=== PATIENT | female | born 1955 | race African-American/Black ===

== ENCOUNTER 2017-07-01 11:31 | Emergency (ER) | payer OTHER, MEDICAID ==
[2017-07-01 11:40] VITALS: BMI 41.5
--- NOTE | 2017-07-01 11:45 | DR.GENAD ---
HPI - PCP Primary Care Physician: nfd - Complaint/Symptoms Chief Complaint Doctors Comments: Patient states that she has had epigastric pain for two months. She denies a history of cardiac disease. Her complatin is about someone looking in her window. Chief Complaint:: " I have not been able to sleep we have called the air conditioning coil assembler because someone is looking into my house and im having some anxiety" - Source History Provided: Patient - Mode of Arrival Mode of Arrival: Ambulatory - Timing Onset of Chief Complaint: 06/27/17 PMH - PMH Past Medical History: Yes Past Medical History: Anxiety, Diabetes, Hypertension Past Surgical History: Yes - Family History History of Family Medical Conditions: Yes Family Medical History: Diabetes Mellitus, Hypertension - Social History Does patient currently use any type of tobacco product: No Have you used tobacco products in the last 12 months: No Type of Tobacco Use: None Does any household member use tobacco: No Alcohol Use: None Do you use any recreational Drugs:: No Lives With: Family Lives Where: Home - infectious screening In the last 2 months have you had wt loss of >10#?: NO Have you had fever, night sweats or hemotysis?: No Have you traveled outside the country in the last 6 months?: No Isolation: Standard ROS - Review of Systems Constitutional: negative: Diaphoresis Eyes: No Symptoms Reported ENTM: No Symptoms Reported Respiratoy: No Symptoms Reported Cardiovascular: No Symptoms Reported Gastrointestinal/Abdominal: No Symptoms Reported Genitourinary: No Symptoms Reported Neurological: No Symptoms Reported Musculoskeletal: No Symptoms Reported Integumentary: No Symptoms Reported Hematologic/Lymphatic: No Symptoms Reported Endocrine: No Symptoms Reported Psychiatric: No Symptoms Reported All Other Systems: Reviewed and Negative PE - Vital Signs Vitals: Temperature 97.8 F Pulse Rate [Right Brachial] 95 Pulse Rate [Right Dorsalis 95 Pedis] Pulse Rate 101 Respiratory Rate 20 Blood Pressure [Right Arm] 173/77 Blood Pressure 198/91 O2 Sat by Pulse Oximetry 99 - General Limitations: No Limitations General Appearance: Alert, In No Apparent Distress - Head Head Exam: Normal Inspection, Atraumatic - Eyes Eye exam: Normal Appearance, PERRL, EOMI - ENT ENT Exam: Normal Exam External Ear Exam: Normal External Inspection TM/Canal Exam: Bilateral Normal Nose Exam: Normal Nose Exam Mouth Exam: Normal Inspection Throat Exam: Normal Inspection - Neck Neck Exam: Normal Inspection - Chest Chest Inspection: Normal Inspection - Respiratory Respiratory Exam: Normal Lung Sounds Bilat Respiratory Exam: Bilateral Clear to Auscultation - Cardiovascular Cardiovascular Exam: Regular Rate - Abdominal Exam Abdominal Exam: Normal Inspection, Normal Bowel Sounds Abdominal Tenderness: negative: RUQ, RLQ, LUQ, LLQ, Epigastrium, Suprapubic, Diffuse, Mild, Moderate, Severe, Other - Extremities Extremities Exam: Normal Inspection - Back Back Exam: Normal Inspection - Neurologic Neurological Exam: Alert, Oriented X3, CN II-XII Intact - Psychiatric Psychiatric Exam: Normal Affect - Skin Skin Exam: Warm Course - Education/Counseling Educated On: Treatment, Diagnosis, Needs for Follow Up ROR - Labs Reviewed Laboratory Results Reviewed?: Yes (hypokalemia) Result Diagrams: 07/01/17 12:10 07/01/17 12:10 Laboratory: WBC 7.8 X10^3/uL (3.6-10.0) 07/01/17 12:10 RBC 4.98 X10^6/uL (3.5-5.4) 07/01/17 12:10 Hgb 12.9 g/dL (12.0-16.0) 07/01/17 12:10 Hct 38.6 % (36.0-47.0) 07/01/17 12:10 MCV 77.6 fL (80.0-100.0) L 07/01/17 12:10 MCH 26.0 pg (27.0-34.0) L 07/01/17 12:10 MCHC 33.5 g/dL (33.0-35.0) 07/01/17 12:10 RDW 14.9 % (11.6-16.5) 07/01/17 12:10 Plt Count 238 X10^3/uL (150.0-450.0) 07/01/17 12:10 MPV 8.4 fL (7.4-11.0) 07/01/17 12:10 Neut % (Auto) 63.3 % (42.0-75.0) 07/01/17 12:10 Lymph % (Auto) 28.9 % (21.0-51.0) 07/01/17 12:10 [place] % (Auto) 6.0 % (0.0-13.0) 07/01/17 12:10 Eos % (Auto) 1.5 % (0.9-2.9) 07/01/17 12:10 Baso % (Auto) 0.3 % (0.2-1.0) 07/01/17 12:10 Neut # (Auto) 4.9 x10^3/uL (2.2-4.8) H 07/01/17 12:10 Lymph # (Auto) 2.3 X10^3/uL (1.3-2.9) 07/01/17 12:10 [place] # (Auto) 0.5 x10^3/uL (0.3-0.8) 07/01/17 12:10 Eos # (Auto) 0.1 x10^3/uL (0.0-0.2) 07/01/17 12:10 Baso # (Auto) 0.0 X10^3/uL (0.0-0.1) 07/01/17 12:10 Absolute Nucleated RBC 0.0 /100WBC 07/01/17 12:10 Sodium 143 mmol/L (136-145) 07/01/17 12:10 Corrected Sodium 145 mmol/L (136-145) 07/01/17 12:10 Potassium 2.9 mmol/L (3.5-5.1) L* 07/01/17 12:10 Chloride 105 mmol/L (98-107) 07/01/17 12:10 Carbon Dioxide 28.7 mmol/L (21-32) 07/01/17 12:10 BUN 17 mg/dL (7-18) 07/01/17 12:10 Creatinine 1.06 mg/dL (0.55-1.02) H 07/01/17 12:10 Est GFR (MDRD) Af Amer > 60 (>60) 07/01/17 12:10 Est GFR (MDRD) Non-Af 55 (>60) L 07/01/17 12:10 Glucose 166 mg/dL (65-99) H 07/01/17 12:10 Calcium 8.6 mg/dL (8.5-10.1) 07/01/17 12:10 Corrected Calcium TNP 07/01/17 12:10 Total Bilirubin 0.60 mg/dL (0.2-1.0) 07/01/17 12:10 AST 22 Units/L (15-37) 07/01/17 12:10 ALT 22 Units/L (12-78) 07/01/17 12:10 Alkaline Phosphatase 120 Units/L (46-116) H 07/01/17 12:10 Creatine Kinase 361 Units/L (26-192) H 07/01/17 12:10 CK-MB (CK-2) 3.0 ng/mL (0-4.0) 07/01/17 12:10 CK/CKMB % Calc 0.8 % (<4) 07/01/17 12:10 Troponin I 0.03 ng/mL (0-1.5) 07/01/17 12:10 C-Reactive Protein 4.40 mg/L (0-3.0) H 07/01/17 12:10 Total Protein 7.3 g/dL (6.4-8.2) 07/01/17 12:10 Albumin 3.4 g/dL (3.4-5.0) 07/01/17 12:10 Globulin 3.9 g/dL (2.5-4.5) 07/01/17 12:10 Albumin/Globulin Ratio 0.9 Ratio (1.1-2.1) L 07/01/17 12:10 Specimen Type Random urine 07/01/17 12:16 Urine Color Yellow (YELLOW) 07/01/17 12:16 Urine Appearance Clear (CLEAR) 07/01/17 12:16 Urine pH 7.0 (5.0 - 8.0) 07/01/17 12:16 Ur Specific [place] 1.010 (1.000-1.030) 07/01/17 12:16 Urine Protein 3+ (NEGATIVE) 07/01/17 12:16 Urine Glucose (UA) Negative (NEGATIVE) 07/01/17 12:16 Urine Ketones Negative (NEGATIVE) 07/01/17 12:16 Urine Occult Blood 2+ (NEGATIVE) 07/01/17 12:16 Urine Nitrite Negative (NEGATIVE) 07/01/17 12:16 Urine Bilirubin Negative (NEGATIVE) 07/01/17 12:16 Urine Urobilinogen Normal (NORMAL) 07/01/17 12:16 Ur Leukocyte Esterase Negative (NEGATIVE) 07/01/17 12:16 Urine RBC 3-5 /HPF (NONE SEEN) 07/01/17 12:16 Urine WBC 0-2 /HPF (NONE SEEN) 07/01/17 12:16 Ur Squamous Epith Cells Few /HPF (NEGATIVE) 07/01/17 12:16 Urine Bacteria Negative /HPF (NEGATIVE) 07/01/17 12:16 Ur Culture Indicated? No/not indicated 07/01/17 12:16 H. pylori IgG Antibody Negative (NEGATIVE) 07/01/17 12:10 - XRAY XRAY Interpreted by: Radiologist (Chest: No acute chest process or significant change) - Diagnosis Discharge Problem: Hypokalemia, Epigastric pain - Discharge Plan Condition: Stable - Follow ups/Referrals Follow ups/Referrals: NFD,None [Primary Care Provider] - 3 days - Instructions
[2017-07-01 11:59] VITALS: BP 173/77
[2017-07-01 12:19] LABS: BASOPHILS % (AUTO) 0.3 % (0.2-1.0); EOSINOPHILS # (AUTO) 0.1 x10^3/uL (0.0-0.2); EOSINOPHILS % (AUTO) 1.5 % (0.9-2.9); HEMATOCRIT 38.6 % (36.0-47.0); HEMOGLOBIN 12.9 g/dL (12.0-16.0); LYMPHOCYTES # (AUTO) 2.3 X10^3/uL (1.3-2.9); LYMPHOCYTES % (AUTO) 28.9 % (21.0-51.0); MEAN CORPUSCULAR HGB CONC 33.5 g/dL (33.0-35.0); MEAN CORPUSCULAR VOLUME 77.6 fL (80.0-100.0); MEAN PLATELET VOLUME 8.4 fL (7.4-11.0); MONOCYTES # (AUTO) 0.5 x10^3/uL (0.3-0.8); NEUTROPHILS # (AUTO) 4.9 x10^3/uL (2.2-4.8); NEUTROPHILS % (AUTO) 63.3 % (42.0-75.0); PLATELET COUNT 238 X10^3/uL (150.0-450.0); RED BLOOD COUNT 4.98 X10^6/uL (3.5-5.4); RED CELL DISTRIBUTION WIDTH 14.9 % (11.6-16.5); WHITE BLOOD COUNT 7.8 X10^3/uL (3.6-10.0)
--- NOTE | 2017-07-01 12:21 | RAD ---
Chest, AP portable Indication: Epigastric pain, anxiety Comparison: 05/21/2015 Findings: The cardiac silhouette is unremarkable. The lungs are clear without focal infiltrates or si gnificant pleural effusion. Impression: No acute chest process or significant interval change. Reported By:
[2017-07-01 12:35] LABS: BILIRUBIN,URINE NEGATIVE (NEGATIVE); BLOOD/HEMOGLOBIN,URINE 2+ (NEGATIVE); GLUCOSE, URINE NEGATIVE (NEGATIVE); KETONES,URINE NEGATIVE (NEGATIVE); LEUKOCYTE ESTERASE ,URINE NEGATIVE (NEGATIVE); NITRITES,URINE NEGATIVE (NEGATIVE); PROTEIN,URINE 3+ (NEGATIVE); UROBILINOGEN,URINE NORMAL (NORMAL)
[2017-07-01 12:36] LABS: APPEARANCE,URINE CLEAR (CLEAR); COLOR,URINE YELLOW (YELLOW)
[2017-07-01 12:41] LABS: BACTERIA,URINE NEGATIVE /HPF (NEGATIVE); SQUAMOUS EPITHELIAL CELL,UR FEW /HPF (NEGATIVE)
[2017-07-01 12:46] LABS: ALANINE AMINOTRANSFERASE 22 Units/L (12-78); ALBUMIN 3.4 g/dL (3.4-5.0); ALKALINE PHOSPHATASE 120 Units/L (46-116); ASPARTATE AMINO TRANSFERASE 22 Units/L (15-37); BLOOD UREA NITROGEN 17 mg/dL (7-18); CALCIUM 8.6 mg/dL (8.5-10.1); CARBON DIOXIDE 28.7 mmol/L (21-32); CHLORIDE 105 mmol/L (98-107); CKMB % 0.8 % (<4); COR NA(FOR HYPERGLY) 145 mmol/L (136-145); CREATINE KINASE 361 Units/L (26-192); CREATININE 1.06 mg/dL (0.55-1.02); SODIUM 143 mmol/L (136-145); TOTAL PROTEIN 7.3 g/dL (6.4-8.2); TROPONIN I 0.03 ng/mL (0-1.5); eGFR BLACK RACES > 60 (>60); eGFR NON BLACK RACES 55 (>60)
[2017-07-01] MEDS ORDERED: K-LYTE EFFERVESCENT PO ONE (13:00)
[2017-07-01] MEDS ORDERED: K-LYTE EFFERVESCENT ONE (13:19)
== END 2017-07-01 14:54 | disposition home or self-care (01) ==
LOC: ER 11:49
DX: R10.31 Right lower quadrant pain (principal); E87.6 Hypokalemia; R94.31 Abnormal electrocardiogram [ECG] [EKG]; R79.82 Elevated C-reactive protein (CRP)
CPT/HCPCS: 36415; 71045; 80053; 81001; 82550; 82553; 84484; 85025; 86140; 86677; 93005; 93010; 99282; 99283; A4222

== ENCOUNTER 2017-07-16 12:08 | Emergency (ER) | payer OTHER, MEDICAID ==
[2017-07-16 12:16] VITALS: BP 186/87; BMI 39.9
--- NOTE | 2017-07-16 12:45 | ED.ABDFE ---
HPI - Time seen Time seen: 12:35 - PCP Primary Care Physician: ASHELY DWYER AT THE [facility] - HPI Comment HPI Comment: FOOD GONE DOWN NOW. CONCERN ELCTROLYTES MAY BE OFF FROM THROWING UP. NO HEMATEMESIS. - Complaint Chief Complaint Doctors Comments: FELT FOOD NOT GOING DOWN AND WAS HUTING. Chief Complaint:: PT C/O EATING CHIPS TODAY AND SHE C/O THAT HER FOOD WOULD NOT GO DOWN.. THEN SHE STARTED BURPING AND NOW I FELL BETTER ,,, PTS C/O I WANT TO CHECK TO MAKE SURE MY POTASSIUM WAS LOW..BR - Nurses notes reviewed Nurses Notes Review: Yes - Source History Provided: Patient - Mode of arrival Mode of Arrival: Ambulatory - Timing Onset of Chief Complaint: 07/16/17 Came on: Suddenly - Duration Duration: Constant Duration: Hours - Location Location: Epigastric (DYSPHAGIA) - Severity Severity: Moderate - Quality Quality: Burning - Context Onset: Suddenly History of: None - Modifying Worsening Factors: Nothing Improving Factors: Nothing - Associated signs and symptoms Associated Signs and Symptoms: Vomiting PMH - PMH Past Medical History: Yes Past Medical History: Anxiety, Diabetes, Dyslipidemia, Hypertension Past Surgical History: No Past Surgical History Comment: INGUINAL HERNIA REPAIR. - Family History History of Family Medical Conditions: Yes Family Medical History: Diabetes Mellitus, Hypertension - Social History Does patient currently use any type of tobacco product: No Have you used tobacco products in the last 12 months: No Type of Tobacco Use: None Does any household member use tobacco: No Alcohol Use: None Do you use any recreational Drugs:: No Lives With: Family Lives Where: Home - infectious screening In the last 2 months have you had wt loss of >10#?: NO Have you had fever, night sweats or hemotysis?: No Have you traveled outside the country in the last 6 months?: No Isolation: Standard ROS - Review of Systems Constitutional: Fatigue. negative: Chills, Fever, Weakness Eyes: No Symptoms Reported. negative: Eye Pain, Discharge ENTM: No Symptoms Reported. negative: Ear Discharge, Nose Discharge, Nose Congestion, Throat Pain Respiratoy: No Symptoms Reported. negative: Productive Cough, Non-Productive Cough, Short of Breath, Wheezing, Hemoptysis Cardiovascular: No Symptoms Reported. negative: Chest Pain Gastrointestinal/Abdominal: Abdominal Pain, Nausea, Vomiting. negative: Diarrhea Genitourinary: No Symptoms Reported. negative: Dysuria, Frequency, Hematuria Neurological: No Symptoms Reported Musculoskeletal: No Symptoms Reported Integumentary: No Symptoms Reported Hematologic/Lymphatic: No Symptoms Reported Endocrine: No Symptoms Reported All Other Systems: Reviewed and Negative PE - Vital Signs Vitals: Temperature 98.4 F Pulse Rate 76 Respiratory Rate 20 Blood Pressure [Right Arm] 173/77 Blood Pressure 186/87 O2 Sat by Pulse Oximetry 99 - General Limitations: No Limitations General Appearance: Alert - Head Head Exam: Normal Inspection - Eyes Eye exam: Normal Appearance - ENT ENT Exam: Normal External Ear Exam - Neck Neck Exam: Trachea Midline - Chest Chest Inspection: Symmetric Chest Wall Rise - Respiratory Respiratory Exam: Normal Lung Sounds Bilat Respiratory Exam: Bilateral Clear to Auscultation - Cardiovascular Cardiovascular Exam: Regular Rate, Normal Rhythm, Normal Heart Sounds - Abdominal Exam Abdominal Exam: Normal Bowel Sounds, Soft, Tenderness Abdominal Tenderness: Epigastrium, Mild - Rectal Rectal Exam: Deferred - Back Back Exam: Normal Inspection - Extremeties Extremities Exam: Normal Inspection - External Exam: Female: Deferred : Speculum Exam (Female): Deferred : Bimanual Exam (female): Deferred - Neurologic Neurological Exam: Alert, Oriented X3 - Psychiatric Psychiatric Exam: Normal Affect, Normal Mood - Skin Skin Exam: Normal Color MDM - Differential Diagnosis Differential Diagnosis- Considerations may include:: Gastritus/PUD, Urinary tract infection, Urolithiasis Course - Treatment Treatment: SEE ORDERS. - Education/Counseling Education/Counseling: Patient, Education Educated On: Diagnosis, Needs for Follow Up ROR - Labs Reviewed Laboratory Results Reviewed?: Yes Result Diagrams: 07/16/17 12:54 07/16/17 12:54 Laboratory: WBC 8.3 X10^3/uL (3.6-10.0) 07/16/17 12:54 RBC 4.88 X10^6/uL (3.5-5.4) 07/16/17 12:54 Hgb 12.7 g/dL (12.0-16.0) 07/16/17 12:54 Hct 37.5 % (36.0-47.0) 07/16/17 12:54 MCV 76.8 fL (80.0-100.0) L 07/16/17 12:54 MCH 26.0 pg (27.0-34.0) L 07/16/17 12:54 MCHC 33.9 g/dL (33.0-35.0) 07/16/17 12:54 RDW 14.5 % (11.6-16.5) 07/16/17 12:54 Plt Count 261 X10^3/uL (150.0-450.0) 07/16/17 12:54 MPV 8.7 fL (7.4-11.0) 07/16/17 12:54 Neut % (Auto) 63.6 % (42.0-75.0) 07/16/17 12:54 Lymph % (Auto) 28.1 % (21.0-51.0) 07/16/17 12:54 [place] % (Auto) 5.7 % (0.0-13.0) 07/16/17 12:54 Eos % (Auto) 2.1 % (0.9-2.9) 07/16/17 12:54 Baso % (Auto) 0.5 % (0.2-1.0) 07/16/17 12:54 Neut # (Auto) 5.3 x10^3/uL (2.2-4.8) H 07/16/17 12:54 Lymph # (Auto) 2.3 X10^3/uL (1.3-2.9) 07/16/17 12:54 [place] # (Auto) 0.5 x10^3/uL (0.3-0.8) 07/16/17 12:54 Eos # (Auto) 0.2 x10^3/uL (0.0-0.2) 07/16/17 12:54 Baso # (Auto) 0.0 X10^3/uL (0.0-0.1) 07/16/17 12:54 Absolute Nucleated RBC 0.0 /100WBC 07/16/17 12:54 Sodium 142 mmol/L (136-145) 07/16/17 12:54 Corrected Sodium 143 mmol/L (136-145) 07/16/17 12:54 Potassium 3.4 mmol/L (3.5-5.1) L 07/16/17 12:54 Chloride 106 mmol/L (98-107) 07/16/17 12:54 Carbon Dioxide 28.0 mmol/L (21-32) 07/16/17 12:54 BUN 18 mg/dL (7-18) 07/16/17 12:54 Creatinine 1.06 mg/dL (0.55-1.02) H 07/16/17 12:54 Est GFR (MDRD) Af Amer > 60 (>60) 07/16/17 12:54 Est GFR (MDRD) Non-Af 55 (>60) L 07/16/17 12:54 Glucose 121 mg/dL (65-99) H 07/16/17 12:54 Calcium 8.5 mg/dL (8.5-10.1) 07/16/17 12:54 Specimen Type Clean catch urine 07/16/17 13:02 Urine Color Yellow (YELLOW) 07/16/17 13:02 Urine Appearance Slightly hazy (CLEAR) 07/16/17 13:02 Urine pH 6.0 (5.0 - 8.0) 07/16/17 13:02 Ur Specific [place] 1.010 (1.000-1.030) 07/16/17 13:02 Urine Protein 1+ (NEGATIVE) 07/16/17 13:02 Urine Glucose (UA) Negative (NEGATIVE) 07/16/17 13:02 Urine Ketones Negative (NEGATIVE) 07/16/17 13:02 Urine Occult Blood Negative (NEGATIVE) 07/16/17 13:02 Urine Nitrite Negative (NEGATIVE) 07/16/17 13:02 Urine Bilirubin Negative (NEGATIVE) 07/16/17 13:02 Urine Urobilinogen 1+ (NORMAL) 07/16/17 13:02 Ur Leukocyte Esterase Negative (NEGATIVE) 07/16/17 13:02 Urine RBC None seen /HPF (NONE SEEN) 07/16/17 13:02 Urine WBC 0-2 /HPF (NONE SEEN) 07/16/17 13:02 Ur Squamous Epith Cells Few /HPF (NEGATIVE) 07/16/17 13:02 Amorphous Sediment Trace /HPF (NEGATIVE) 07/16/17 13:02 Urine Bacteria Trace /HPF (NEGATIVE) 07/16/17 13:02 Urine Mucus Few /HPF (NEGATIVE) 07/16/17 13:02 Ur Culture Indicated? No/not indicated 07/16/17 13:02 - Diagnosis Discharge Problem: Hypokalemia, Dyspepsia - Discharge Plan Disposition: 01 HOME, SELF-CARE Condition: Stable Prescriptions: Dexlansoprazole [Dexilant] 60 mg PO DAILY #30 cap. - Follow ups/Referrals Follow ups/Referrals: NFD,None [Primary Care Provider] - 3 days - Instructions Instructions: Hypokalemia, Abdominal Pain, Adult, [id number] Additional Instructions: RETURN TO ED IF WORSE.
[2017-07-16 13:07] LABS: BASOPHILS % (AUTO) 0.5 % (0.2-1.0); EOSINOPHILS # (AUTO) 0.2 x10^3/uL (0.0-0.2); EOSINOPHILS % (AUTO) 2.1 % (0.9-2.9); HEMATOCRIT 37.5 % (36.0-47.0); HEMOGLOBIN 12.7 g/dL (12.0-16.0); LYMPHOCYTES # (AUTO) 2.3 X10^3/uL (1.3-2.9); LYMPHOCYTES % (AUTO) 28.1 % (21.0-51.0); MEAN CORPUSCULAR HGB CONC 33.9 g/dL (33.0-35.0); MEAN CORPUSCULAR VOLUME 76.8 fL (80.0-100.0); MEAN PLATELET VOLUME 8.7 fL (7.4-11.0); MONOCYTES # (AUTO) 0.5 x10^3/uL (0.3-0.8); MONOCYTES % (AUTO) 5.7 % (0.0-13.0); NEUTROPHILS # (AUTO) 5.3 x10^3/uL (2.2-4.8); NEUTROPHILS % (AUTO) 63.6 % (42.0-75.0); PLATELET COUNT 261 X10^3/uL (150.0-450.0); RED BLOOD COUNT 4.88 X10^6/uL (3.5-5.4); RED CELL DISTRIBUTION WIDTH 14.5 % (11.6-16.5); WHITE BLOOD COUNT 8.3 X10^3/uL (3.6-10.0)
[2017-07-16 13:13] LABS: BLOOD UREA NITROGEN 18 mg/dL (7-18); CALCIUM 8.5 mg/dL (8.5-10.1); CHLORIDE 106 mmol/L (98-107); COR NA(FOR HYPERGLY) 143 mmol/L (136-145); CREATININE 1.06 mg/dL (0.55-1.02); SODIUM 142 mmol/L (136-145); eGFR BLACK RACES > 60 (>60); eGFR NON BLACK RACES 55 (>60)
[2017-07-16 13:35] LABS: BILIRUBIN,URINE NEGATIVE (NEGATIVE); BLOOD/HEMOGLOBIN,URINE NEGATIVE (NEGATIVE); GLUCOSE, URINE NEGATIVE (NEGATIVE); KETONES,URINE NEGATIVE (NEGATIVE); LEUKOCYTE ESTERASE ,URINE NEGATIVE (NEGATIVE); NITRITES,URINE NEGATIVE (NEGATIVE); PROTEIN,URINE 1+ (NEGATIVE); UROBILINOGEN,URINE 1+ (NORMAL)
[2017-07-16 13:42] LABS: APPEARANCE,URINE SLIGHTLY HAZY (CLEAR); COLOR,URINE YELLOW (YELLOW); RBC,URINE NONE SEEN /HPF (NONE SEEN); SQUAMOUS EPITHELIAL CELL,UR FEW /HPF (NEGATIVE)
[2017-07-16 13:43] LABS: AMORPHOUS SEDIMENT,UR TRACE /HPF (NEGATIVE); BACTERIA,URINE TRACE /HPF (NEGATIVE); MUCUS,URINE FEW /HPF (NEGATIVE)
[2017-07-16] MEDS ORDERED: K-LYTE EFFERVESCENT PO ONE (14:18)
[2017-07-16] MEDS ORDERED: K-LYTE EFFERVESCENT ONE (14:24)
== END 2017-07-16 14:30 | disposition home or self-care (01) ==
LOC: ER 12:20
DX: R10.13 Epigastric pain (principal); E87.6 Hypokalemia
CPT/HCPCS: 36415; 80048; 81001; 85025; 99282

== ENCOUNTER 2022-02-26 02:39 | Observation (INO) ==
--- NOTE | 2022-02-26 02:47 | DR.CP ---
HPI Time Seen Time Seen by Provider: 02/26/22 02:46 HPI Comment HPI Comment: PATIENT IS 66YR OLD FEMALE IN ER WITH CHEST PAIN. PATIENT HAVE HISTORY OF DYSLIPIDEMIA, DM, HT AND ARTHRTIS. HAVE HAD SIMILAR PAIN ON AND OFF FOR 3 WEEKS. WAS IN [facility] IN [place], [place] WHERE CARDIC ATH WAS DONE WITHOUT STENTD. PATIENT WHILE HOSPITAL, SEVERAL TESTS WAS DONE ON HER HEART. PAIN IS MAINLY IN EPIGASTRIC AREA AND LOWER SUBSTERNAL AREA. NO FEVER, COUGH OR CONGESTION. BP ELEVATED IN ER. HAVE TAKEN HER BP MEDICATION. SHE WAS IN ER WITH SIMILAR PAIN AND TRANSFER TO [facility] IN [place] FOR THE SECOND TIME. Complaint Chief Complaint Doctor Comments: CHEST PAIN, EPIGASTRIC PAIN TIMES 2 HOURS. COVID-19 Coronavirus risk:travel/contact w/high risk person: No Has patient experienced Coronavirus symptoms: No Reviewed Nurses Notes Review: Yes Source History Provided: Patient Mode of Arrival Mode of Arrival: EMS Timing Came on: Suddenly Pain: Present Now Duration Duration: Constant Duration: Hours Location Location of Chest Pain: Chest (EPIGASTRIC AREA.) Context Onset: While Asleep Cardiac Risk Factors: HTN Quality Quality: Sharp Severity Severity: Moderate Modifying Factors Worsens: Exertion Impoves: Rest Associated Signs and Symptoms Associated Signs and Symptoms: Shortness of Breath and Abdominal Pain PMH PMH Past Medical History: Anxiety, Arthritis, Diabetes, Dyslipidemia and Hypertension Past Surgical History: Yes Surgical History: and Other Family History Family Medical History: Diabetes Mellitus and Hypertension Social History Do you use any recreational Drugs:: No ROS Review of Systems Constitutional: Weakness and Fatigue; negative Fever Eyes: No Symptoms Reported ENTM: negative Nose Discharge or Nose Congestion Respiratoy: Short of Breath; negative Moist Cough or Wheezing Cardiovascular: Chest Pain Gastrointestinal/Abdominal: No Symptoms Reported; negative Abdominal Pain, Kalpana rrhea, Nausea or Vomiting Genitourinary: No Symptoms Reported; negative Dysuria Neurological: Weakness; negative Headache or Dizziness Musculoskeletal: No Symptoms Reported; negative Muscle Pain Integumentary: No Symptoms Reported; negative Rash or Juandice Hematologic/Lymphatic: No Symptoms Reported and Easy Bruising Endocrine: No Symptoms Reported; negative Increased Thirst or Increased Urine Psychiatric: No Symptoms Reported All Other Systems: Reviewed and Negative PE Vitals Vitals: Temperature 98.8 F Pulse Rate 69 Respiratory Rate 16 Blood Pressure [Right Arm] 180/64 Blood Pressure 133/61 O2 Sat by Pulse Oximetry 100 General General Appearance: Alert and In No Apparent Distress Head Head Exam: Normal Inspection Eyes Eye exam: Normal Appearance; negative Scleral Icterus or Conjunctival Injection ENT ENT Exam: Normal Exam, Normal Oropharynx, Normal External Ear Exam and TM's Normal Bilaterally Chest Chest Inspection: Normal Inspection and Symmetric Chest Wall Rise; negative Tenderness Respiratory Respiratory Exam: Normal Lung Sounds Bilat; negative Accessory Muscle Use, Chest Wall Tenderness or Respiratory Distress Respiratory Exam: Bilateral: Rhonchi Cardiovascular Cardiovascular Exam: Regular Rate, Normal Rhythm and Normal Heart Sounds; negative Systolic Murmur or Diastolic Murmur Pulse: Normal Edema: Normal Abdominal Exam Abdominal Exam: Normal Inspection, Normal Bowel Sounds and Soft; negative Tend erness Extremities Extremities Exam: Normal Inspection and Normal Capillary Refill Back Back Exam: Normal Inspection; negative (R) CVA Tenderness or (L) CVA Tenderness Neurologic Neurological Exam: Alert and Oriented X3; negative Motor Sensory Deficit Psychiatric Psychiatric Exam: Normal Affect and Normal Mood Skin Skin Exam: Intact MDM Differential Diagnosis Differential Diagnosis: Angina, Gastritis (PUD), Myocardial Infarction, Pericarditis, Pneumonia and Pneumothorax COURSE Treatment Treatment: SEE ORDERS DONE WHILE PATIENT WAS IN ER. CLONIDINE 0.2MG PO IN ER. BP IMPROVED. Consultation Consultation Comments: DISCUSSED PATIENT WITH DR. HEADLEY. HE WILL ADMIT PATIENT. Education/Counseling Education/Counseling: Patient and Family Educated On: Diagnosis ROR Labs Reviewed Laboratory Results Reviewed?: Yes Result Diagrams: 02/27/22 03:15 02/27/22 03:15 Laboratory: WBC 6.5 X10^3/uL (3.6-10.0) 02/26/22 03:08 RBC 4.35 X10^6/uL (3.5-5.4) 02/26/22 03:08 Hgb 11.6 g/dL (12.0-16.0) L 02/26/22 03:08 Hct 34.6 % (36.0-47.0) L 02/26/22 03:08 MCV 79.5 fL (80.0-100.0) L 02/26/22 03:08 MCH 26.6 pg (27.0-34.0) L 02/26/22 03:08 MCHC 33.5 g/dL (33.0-35.0) 02/26/22 03:08 RDW 15.2 % (11.6-16.5) 02/26/22 03:08 Plt Count 233 X10^3/uL (150.0-450.0) 02/26/22 03:08 MPV 8.8 fL (7.4-11.0) 02/26/22 03:08 Neut % (Auto) 52.0 % (42.0-75.0) 02/26/22 03:08 Lymph % (Auto) 35.2 % (21.0-51.0) 02/26/22 03:08 [place] % (Auto) 9.2 % (0.0-13.0) 02/26/22 03:08 Eos % (Auto) 2.6 % (0.9-2.9) 02/26/22 03:08 Baso % (Auto) 1.0 % (0.2-1.0) 02/26/22 03:08 Neut # (Auto) 3.4 x10^3/uL (2.2-4.8) 02/26/22 03:08 Lymph # (Auto) 2.3 X10^3/uL (1.3-2.9) 02/26/22 03:08 [place] # (Auto) 0.6 x10^3/uL (0.3-0.8) 02/26/22 03:08 Eos # (Auto) 0.2 x10^3/uL (0.0-0.2) 02/26/22 03:08 Baso # (Auto) 0.1 X10^3/uL (0.0-0.1) 02/26/22 03:08 Absolute Nucleated RBC 0.0 /100WBC 02/26/22 03:08 Sodium 140 mmol/L (136-145) 02/26/22 03:08 Corrected Sodium 143 mmol/L (136-145) 02/26/22 03:08 Potassium 3.2 mmol/L (3.5-5.1) L 02/26/22 03:08 Chloride 103 mmol/L (98-107) 02/26/22 03:08 Carbon Dioxide 28.3 mmol/L (21-32) 02/26/22 03:08 BUN 24 mg/dL (7-18) H 02/26/22 03:08 Creatinine 1.41 mg/dL (0.55-1.02) H 02/26/22 03:08 Est GFR (MDRD) Af Amer 48 (>60) L 02/26/22 03:08 Est GFR (MDRD) Non-Af 39 (>60) L 02/26/22 03:08 Glucose 216 mg/dL (65-99) H 02/26/22 03:08 Calcium 8.7 mg/dL (8.5-10.1) 02/26/22 03:08 Corrected Calcium 9.3 mg/dL (8.5-10.1) 02/26/22 03:08 Total Bilirubin 0.50 mg/dL (0.2-1.0) 02/26/22 03:08 AST 20 Units/L (15-37) 02/26/22 03:08 ALT 15 Units/L (12-78) 02/26/22 03:08 Alkaline Phosphatase 105 Units/L (46-116) 02/26/22 03:08 Creatine Kinase 132 Units/L (26-192) 02/26/22 03:08 Troponin I High Sens 103.5 ng/L (4.0-60.0) H* 02/26/22 05:23 B-Natriuretic Peptide 18.6 pg/mL (0-79) 02/26/22 03:08 Total Protein 6.5 g/dL (6.4-8.2) 02/26/22 03:08 Albumin 3.2 g/dL (3.4-5.0) L 02/26/22 03:08 Globulin 3.3 g/dL (2.5-4.5) 02/26/22 03:08 Albumin/Globulin Ratio 1.0 Ratio (1.1-2.1) L 02/26/22 03:08 Amylase 62 Units/L (25-115) 02/26/22 05:23 Lipase 128 Units/L (73-393) 02/26/22 05:23 Specimen Type Clean catch urine 02/26/22 02:56 Urine Color Straw (YELLOW) 02/26/22 02:56 Urine Appearance Clear (CLEAR) 02/26/22 02:56 Urine pH 6.0 (5.0 - 8.0) 02/26/22 02:56 Ur Specific [place] 1.015 (1.000-1.030) 02/26/22 02:56 Urine Protein Negative (NEGATIVE) 02/26/22 02:56 Urine Glucose (UA) 4+ (NEGATIVE) 02/26/22 02:56 Urine Ketones Negative (NEGATIVE) 02/26/22 02:56 Urine Blood Negative (NEGATIVE) 02/26/22 02:56 Urine Nitrite Negative (NEGATIVE) 02/26/22 02:56 Urine Bilirubin Negative (NEGATIVE) 02/26/22 02:56 Urine Urobilinogen Normal (NORMAL) 02/26/22 02:56 Ur Leukocyte Esterase Negative (NEGATIVE) 02/26/22 02:56 SARS-CoV-2 (PCR) Negative (NEGATIVE) 02/26/22 07:01 XRAY XRAY Interpreted by: Radiologist (TRPORT NOTED.) and Self Opioid Opioid Risk Tool Age (Zion box if 16-45): No History of Preadolescent Sexual Abuse: No Total: 0 Total Score Risk Category: Low Risk Copyright: Trevino ROSINA predicting aberrant behaviors Discharge Plan Diagnosis Discharge Problem: Abdominal pain, epigastric, Chest pain, Elevated troponin level, Hypertension Discharge Plan Patient Disposition: 09 ADMITTED INPATIENT Condition: Stable ADDITIONAL NOTES Additional Notes Additional Notes: 2 EKG TAKEN FEW MINUTES APART. COMPUTOR READ STEMI IN FIRST EKG. DISAGREE. CARDIOLOGY READING PEDDING.
[2022-02-26 02:53] VITALS: BMI 35.2
[2022-02-26] MEDS ORDERED: CATAPRES TAB 0.2 MG PO ONE (02:57)
[2022-02-26] MEDS ORDERED: CATAPRES TAB 0.2 MG ONE (03:01)
--- NOTE | 2022-02-26 03:02 | EKG ---
Test Reason : chest discomfort Blood Pressure : */* mmHG Vent. Rate : 88 BPM Atrial Rate : 88 BPM P-R Int : 160 ms QRS Dur : 96 ms QT Int : 366 ms P-R-T Axes : 63 -1 60 degrees QTc Int : 442 ms Critical Test Result: STEMI Normal sinus rhythm ST elevation, consider anterior injury or acute infarct ACUTE NH / STEMI Abnormal ECG No previous ECGs available Referred By: Confirmed By:
[2022-02-26 03:04] LABS: BILIRUBIN,URINE NEGATIVE (NEGATIVE); BLOOD/HEMOGLOBIN,URINE NEGATIVE (NEGATIVE); GLUCOSE, URINE 4+ (NEGATIVE); KETONES,URINE NEGATIVE (NEGATIVE); LEUKOCYTE ESTERASE ,URINE NEGATIVE (NEGATIVE); NITRITES,URINE NEGATIVE (NEGATIVE); PROTEIN,URINE NEGATIVE (NEGATIVE); UROBILINOGEN,URINE NORMAL (NORMAL)
[2022-02-26 03:17] LABS: BASOPHILS # (AUTO) 0.1 X10^3/uL (0.0-0.1); EOSINOPHILS # (AUTO) 0.2 x10^3/uL (0.0-0.2); EOSINOPHILS % (AUTO) 2.6 % (0.9-2.9); HEMATOCRIT 34.6 % (36.0-47.0); HEMOGLOBIN 11.6 g/dL (12.0-16.0); LYMPHOCYTES # (AUTO) 2.3 X10^3/uL (1.3-2.9); LYMPHOCYTES % (AUTO) 35.2 % (21.0-51.0); MEAN CORPUSCULAR HEMOGLOBIN 26.6 pg (27.0-34.0); MEAN CORPUSCULAR HGB CONC 33.5 g/dL (33.0-35.0); MEAN CORPUSCULAR VOLUME 79.5 fL (80.0-100.0); MEAN PLATELET VOLUME 8.8 fL (7.4-11.0); MONOCYTES # (AUTO) 0.6 x10^3/uL (0.3-0.8); MONOCYTES % (AUTO) 9.2 % (0.0-13.0); NEUTROPHILS # (AUTO) 3.4 x10^3/uL (2.2-4.8); RED BLOOD COUNT 4.35 X10^6/uL (3.5-5.4); RED CELL DISTRIBUTION WIDTH 15.2 % (11.6-16.5); WHITE BLOOD COUNT 6.5 X10^3/uL (3.6-10.0)
[2022-02-26 03:18] LABS: APPEARANCE,URINE CLEAR (CLEAR); COLOR,URINE STRAW (YELLOW)
--- NOTE | 2022-02-26 03:25 | RAD ---
HISTORYPT C/O CHEST PAIN, SOB HTN, ANXIETY DM, CSECTION, RECENT HEART CATH (NORMAL PER PT)STUDYCHEST, 1 [id number] trachea is midline. The cardiac silhouette is unremarkable. The lungs are clear without focal infiltrate or effusion. The bony thorax is unremarkable.IMPRESSIONNo acute cardiopulmonary findings .Electronically signed by: Baltazar Houser (Feb 26, 2022 03:24:05)
[2022-02-26 03:43] LABS: ALBUMIN 3.2 g/dL (3.4-5.0); CALCIUM 8.7 mg/dL (8.5-10.1); CARBON DIOXIDE 28.3 mmol/L (21-32); COR CA(FOR HYPOALB) 9.3 mg/dL (8.5-10.1); CREATININE 1.41 mg/dL (0.55-1.02); TOTAL PROTEIN 6.5 g/dL (6.4-8.2)
[2022-02-26] MEDS ORDERED: K-DUR TAB 20 MEQ PO ONE ×2 (04:36→04:40)
[2022-02-26] MEDS ORDERED: PEPCID TAB 40 MG PO ONE (04:37)
[2022-02-26] MEDS ORDERED: PEPCID TAB 40 MG ONE (04:40)
[2022-02-26 09:31] LABS: AMYLASE 62 Units/L (25-115); LIPASE 128 Units/L (73-393)
[2022-02-26] MEDS: PROTONIX INJ 40 MG VIAL IVP SCH ×2 (09:36→20:39)
--- NOTE | 2022-02-26 10:11 | EKG ---
Test Reason : CHEST PAIN Blood Pressure : */* mmHG Vent. Rate : 78 BPM Atrial Rate : 78 BPM P-R Int : 162 ms QRS Dur : 98 ms QT Int : 392 ms P-R-T Axes : 52 -13 42 degrees QTc Int : 446 ms Normal sinus rhythm Normal ECG Confirmed by Be Pratt ([id number]) on 02/27/2022 9:07:42 AM Referred By: Confirmed By: Be Pratt
[2022-02-26] MEDS ORDERED: NS 100 ML IV 100 ML ONE (11:25)
--- NOTE | 2022-02-26 12:04 | CT ---
HISTORYUPPER ABD PAIN, N/V. Hypertension. Diabetes mellitus. Recent heart catheterization.STUDYABDOMEN/PELVIS WITH CONCOMPARISONNoneTECHNIQUEMultiple CT axial images of the abdomen and pelvis were obtained with IV contrast. Coronal and sagittal images were reconstructed. Dose reduction techniques included Automated Exposure Control (AEC) and adjustment of mA and kV.FINDINGSThe lung bases are clear. Heart size is normal.The liver is normal in size and configuration. Gallbladder is contracted but with no inflammation.The spleen is normal in size and shape.The adrenal glands are normal. The pancreas is normal.Bilateral kidney stones are present. Largest is lower pole right kidney measuring about 5 mm. Renal enhancement is symmetric with no solid mass. There is no hydronephrosis or significant perirenal edema. The ureters are not dilated. The bladder is normally distended. It has no wall thickening or perivesical edema.The bowel is not dilated. There is no wall thickening in the bowel or edema around the bowel. The appendix is normal in size with no inflammation around it. No evidence of appendicitis. There are diverticula in the left colon. But there is no wall thickening or pericolonic edema to suggest acute diverticulitis.Lobular uterus contains fibroids. At least 2 of these are calcified.No mass or significant lymphadenopathy. No inflammation or free fluid.Degenerative changes are present in the thoracic spine.IMPRESSION1. Nonobstructing renal calculi2. Uterine fibroids3. Colonic diverticulaElectronically signed by: Robb Velasco (Feb 26, 2022 12:03:12)
--- NOTE | 2022-02-26 15:02 | EKG ---
Test Reason : Chest Pain Blood Pressure : */* mmHG Vent. Rate : 76 BPM Atrial Rate : 76 BPM P-R Int : 166 ms QRS Dur : 100 ms QT Int : 398 ms P-R-T Axes : 64 -5 36 degrees QTc Int : 447 ms Normal sinus rhythm Normal ECG When compared with ECG of 26-FEB-2022 09:52, (Unconfirmed) No significant change was found Confirmed by Be Pratt ([id number]) on 02/27/2022 9:07:15 AM Referred By: Confirmed By: Be Pratt
[2022-02-26] MEDS ORDERED: [UNRECOGNIZED DRUG - OTHER] PO SCH (17:30)
[2022-02-26] MEDS ORDERED: DEXLANSOPRAZOLE 30 MG PO SCH (17:30)
[2022-02-26] MEDS ORDERED: PriLOSEC PO SCH (18:00)
--- NOTE | 2022-02-26 18:26 | DR.H&P ---
H&P - History & Physical for Day of: H&P Date: 02/26/22 - Chief Complaint Chief Complaint: CHEST PAIN - History of Present Illness History of Present Illness: PT IS 66 BF, WITH PMH OF DM, HTN, ADMITTED WITH CHEST PAIN. PT REPORTS SHE HAD CARDIAC CATH AT [facility] A FEW WEEKS AGO "WITHOUT STENTS" REQUIRED. PT POINTS TO EPIGASTRIC AREA, WITH REPORTS OF PAIN THAT COMES AND GOES. PT DENIES ANY SHORTNESS OF BREATH. PT IS ON PPI THERAPY WITH LAST EGD PER DR ROY >1 YEAR AGO. PT ADMITTED FOR SERIAL CE AND EKGS. - Past Medical History Past Medical History: Hypertension, Dyslipidemia, Diabetes, Anxiety, Arthritis - Past Surgical History Surgical History: , Other - Family History Family Medical History: Diabetes Mellitus, Hypertension - Social History Does patient currently use any type of tobacco product: No Have you used tobacco products in the last 12 months: No Type of Tobacco Use: None Alcohol Use: None Drug Use: None - Medications Home Medications: Penicillins Allergy (Verified 02/26/22 02:58) CONTINUE taking the following medications calcitriol 0.25 mcg capsule 0.25 mcg PO QDAY 02/26/22 [History] carvedilol 6.25 mg tablet 6.25 mg PO BID 02/26/22 [History] dexlansoprazole 30 mg capsule,biphase delayed release (Dexilant) 30 mg PO QDAY 02/26/22 [History] furosemide 20 mg tablet 20 mg PO QDAY 02/26/22 [History] hydralazine 100 mg tablet 100 mg PO BID 02/26/22 [History] hydrochlorothiazide 50 mg tablet 50 mg PO QDAY 02/26/22 [History] insulin lispro 100 unit/mL subcutaneous pen (Humalog KwikPen (U-100) Insulin) See Rx Instructions .Route .COMPLEX 02/26/22 [History] insulin lispro protamine-lispro 100 unit/mL (75-25) subcutaneous pen (Humalog Mix 75-25 KwikPen) 55 unit subcut DAILY 02/26/22 [History] isosorbide mononitrate 30 mg tablet,extended release 24 hr 30 mg PO QDAY 02/26/22 [History] losartan 100 mg tablet 100 mg PO QDAY 02/26/22 [History] nifedipine 30 mg tablet,extended release 24 hr 30 mg PO QDAY 02/26/22 [History] omeprazole 20 mg capsule,delayed release 20 mg PO QDAY 02/26/22 [History] potassium chloride 20 mEq tablet,extended release(part/cryst) 20 meq PO QDAY [History] - Review of Systems Constitutional: denies: Fever, Chills Eyes: No Symptoms Reported ENT: No Symptoms Reported Respiratory: denies: Shortness of Breath Cardiovascular: Chest Pain Gastrointestinal: Nausea, Abdominal Pain Genitourinary: No Symptoms Reported Musculoskeletal: No Symptoms Reported Skin: No Symptoms Reported Neurological: No Symptoms Reported - Physical Exam Vital Signs: Temperature 98.7 F Pulse Rate [Radial] 78 Pulse Rate 69 Respiratory Rate 20 Blood Pressure [Right Arm] 170/74 Blood Pressure 133/61 O2 Sat by Pulse Oximetry 99 Oriented: Normal Eyes: Normal Ear: Normal Nose: Normal Throat: Normal Respiratory: RLL Diminished, LLL Diminished Cardiovascular: Normal. negative: Edema : Normal Auscultation: Bowel Sounds: Normal Palpation: Normal Tenderness: RUQ, Epigastric Skin: Normal Musculoskeletal: Normal Psychiatric: Normal Mood Description: Calm Speech Pattern: Clear - Assessment/Plan (1) Chest pain Status: Acute Plan: ADMIT, SERIAL CE AND EKG. BP CONTROL, CARDIAC MONITORING. VERIFY HOME MEDICATION. BS CONTROL, PPI THERAPY. PRN SUPPLEMENTAL O2 AMYLASE AND LIPASE (2) Epigastric pain Status: Acute (3) Hypertension Qualifiers: Hypertension type: essential hypertension Qualified Code(s): I10 - Essential (primary) hypertension Status: Acute (4) Elevated troponin level Status: Acute - Allergies Allergies/Adverse Reactions: Allergies Allergy/AdvReac Type Severity Reaction Status Date / Time Penicillins Allergy Verified 02/26/22 02:58
[2022-02-26] MEDS: K-DUR TAB 20 MEQ PO SCH (18:53)
[2022-02-26] MEDS: ROCALTROL PO SCH (18:53)
[2022-02-26] MEDS: COZAAR PO SCH (18:54)
[2022-02-26] MEDS: PROCARDIA XL PO SCH (18:54)
[2022-02-26] MEDS: LASIX PO SCH (18:54)
[2022-02-26] MEDS: IMDUR PO SCH (19:13)
[2022-02-26] MEDS: APRESOLINE TAB 25 MG PO SCH (20:36)
[2022-02-26] MEDS: COREG TAB 6.25 MG PO SCH (20:37)
[2022-02-26] MEDS: NovoLIN R (or HumuLIN R) SC PRN (20:45)
[2022-02-26] MEDS ORDERED: CRESTOR TAB 10 MG PO SCH (21:00)
[2022-02-26] MEDS ORDERED: PATIENT'S HOME MEDICATION (Hydralazine 100 mg tablet) PO SCH (21:00)
[2022-02-26] MEDS ORDERED: LOPRESSOR TAB 25 MG PO SCH (21:00)
[2022-02-27 03:29] LABS: BASOPHILS # (AUTO) 0.1 X10^3/uL (0.0-0.1); EOSINOPHILS # (AUTO) 0.1 x10^3/uL (0.0-0.2); EOSINOPHILS % (AUTO) 1.8 % (0.9-2.9); HEMATOCRIT 32.3 % (36.0-47.0); HEMOGLOBIN 10.9 g/dL (12.0-16.0); LYMPHOCYTES # (AUTO) 2.2 X10^3/uL (1.3-2.9); LYMPHOCYTES % (AUTO) 38.8 % (21.0-51.0); MEAN CORPUSCULAR HEMOGLOBIN 26.8 pg (27.0-34.0); MEAN CORPUSCULAR HGB CONC 33.7 g/dL (33.0-35.0); MEAN CORPUSCULAR VOLUME 79.5 fL (80.0-100.0); MEAN PLATELET VOLUME 8.9 fL (7.4-11.0); MONOCYTES # (AUTO) 0.5 x10^3/uL (0.3-0.8); MONOCYTES % (AUTO) 9.3 % (0.0-13.0); NEUTROPHILS # (AUTO) 2.8 x10^3/uL (2.2-4.8); NEUTROPHILS % (AUTO) 49.1 % (42.0-75.0); RED BLOOD COUNT 4.06 X10^6/uL (3.5-5.4); RED CELL DISTRIBUTION WIDTH 15.2 % (11.6-16.5); WHITE BLOOD COUNT 5.7 X10^3/uL (3.6-10.0)
[2022-02-27 03:33] LABS: INR 1.08 (0.8-1.3)
--- NOTE | 2022-02-27 03:40 | EKG ---
Test Reason : elevated troponin Blood Pressure : */* mmHG Vent. Rate : 70 BPM Atrial Rate : 70 BPM P-R Int : 158 ms QRS Dur : 88 ms QT Int : 430 ms P-R-T Axes : 48 -7 16 degrees QTc Int : 464 ms Sinus rhythm with occasional premature ventricular complexes Otherwise normal ECG Confirmed by Be Pratt (4) on 02/27/2022 9:06:07 AM Referred By: Confirmed By: Be Pratt
[2022-02-27 03:52] LABS: ALBUMIN 2.9 g/dL (3.4-5.0); CALCIUM 8.6 mg/dL (8.5-10.1); CARBON DIOXIDE 30.8 mmol/L (21-32); COR CA(FOR HYPOALB) 9.5 mg/dL (8.5-10.1); CREATININE 1.27 mg/dL (0.55-1.02); MAGNESIUM 1.4 mg/dL (2.0-2.9)
[2022-02-27] MEDS ORDERED: KLOR-CON PO PRN (07:00)
[2022-02-27] MEDS ORDERED: K-RIDER 10 MEQ/NS 100 ML 10 MEQ/100 ML BAG IV PRN (07:00)
[2022-02-27] MEDS ORDERED: MAGNESIUM SULFATE 1 GRAM/100 mL PREMIX 1 G/100 ML BAG IV PRN (07:00)
[2022-02-27] MEDS ORDERED: POTASSIUM CHL 40 MEQ/NS 0.45% 500 ML IV PRN (07:00)
[2022-02-27] MEDS ORDERED: POTASSIUM CHL 60 MEQ/NS 0.45% 500 ML IV PRN (07:00)
[2022-02-27] MEDS ORDERED: POTASSIUM CHLORIDE LIQ 20 MEQ UDC PO PRN (07:00)
[2022-02-27] MEDS ORDERED: MICRO K EXTEN CAP 10 MEQ PO PRN (07:00)
[2022-02-27] MEDS ORDERED: K-DUR TAB 20 MEQ PO PRN (07:00)
[2022-02-27] MEDS: APRESOLINE TAB 25 MG PO SCH (08:47)
[2022-02-27] MEDS: LASIX PO SCH (08:47)
[2022-02-27] MEDS: K-DUR TAB 20 MEQ PO SCH (08:47)
[2022-02-27] MEDS: PROTONIX INJ 40 MG VIAL IVP SCH (08:47)
[2022-02-27] MEDS: COZAAR PO SCH (08:48)
[2022-02-27] MEDS: COREG TAB 6.25 MG PO SCH (08:48)
[2022-02-27] MEDS: ROCALTROL PO SCH (08:48)
[2022-02-27] MEDS: PROCARDIA XL PO SCH (08:48)
[2022-02-27] MEDS: IMDUR PO SCH (08:49)
--- NOTE | 2022-02-27 10:23 | EKG ---
Test Reason : Elevated Troponin Blood Pressure : */* mmHG Vent. Rate : 69 BPM Atrial Rate : 69 BPM P-R Int : 158 ms QRS Dur : 90 ms QT Int : 398 ms P-R-T Axes : 60 -12 1 degrees QTc Int : 426 ms Normal sinus rhythm Normal ECG Confirmed by Be Pratt ([id number]) on 02/28/2022 11:02:56 AM Referred By: Confirmed By: Be Pratt
[2022-02-27] MEDS ORDERED: MAG-OX TAB PO ONE (10:25)
--- NOTE | 2022-02-27 10:44 | EKG ---
Test Reason : elevated troponin Blood Pressure : */* mmHG Vent. Rate : 77 BPM Atrial Rate : 77 BPM P-R Int : 116 ms QRS Dur : 74 ms QT Int : 412 ms P-R-T Axes : 32 -5 41 degrees QTc Int : 466 ms Normal sinus rhythm Junctional ST depression, probably normal Borderline ECG Confirmed by Be Pratt ([id number]) on 02/28/2022 11:02:49 AM Referred By: Confirmed By: Be Pratt
[2022-02-27] MEDS: NovoLIN R (or HumuLIN R) SC PRN (10:55)
[2022-02-27 12:55] VITALS: BP 102/52
[2022-02-27] MEDS ORDERED: LEVSIN/MAALOX/LIDOC VISC PO PRN (13:06)
== END 2022-02-27 14:35 | disposition home or self-care (01) ==
LOC: ER 02:39 → MED/SURG 02:39
PROVIDERS: ADMIT Internal Medicine; ATTEND Internal Medicine
DX: R07.89 Other chest pain; D25.9 Leiomyoma of uterus, unspecified; Z20.822 Contact with and (suspected) exposure to COVID-19; E78.5 Hyperlipidemia, unspecified; R10.9 Unspecified abdominal pain; G31.89 Other specified degenerative diseases of nervous system; I10 Essential (primary) hypertension; R11.2 Nausea with vomiting, unspecified; K21.9 Gastro-esophageal reflux disease without esophagitis; N20.0 Calculus of kidney; E83.42 Hypomagnesemia; M19.90 Unspecified osteoarthritis, unspecified site; E11.8 Type 2 diabetes mellitus with unspecified complications; R74.8 Abnormal levels of other serum enzymes; R82.998 Other abnormal findings in urine; E87.6 Hypokalemia; F41.9 Anxiety disorder, unspecified